=== PATIENT | female | born 1965 | race Two or more races ===

== ENCOUNTER 2019-05-11 20:21 | Emergency (ER) | payer OTHER ==
[~2019-05-11] VITALS: Ht 160 cm; Wt 81.6 kg
[2019-05-12 00:10] VITALS: BP 151/99
--- NOTE | 2019-05-12 00:11 | NUR ---
PT BIBS. C/O "HAVING LOWER BACK PAIN FOR AROUND 2X DAYS, -DYSURIA. -HEMATURIA.
== END 2019-05-12 00:46 | disposition home or self-care (01) ==
LOC: ER 20:23
DX: M62.830 Muscle spasm of back (principal); G40.909 Epilepsy, unspecified, not intractable, without status epilepticus; Z88.5 Allergy status to narcotic agent